=== PATIENT | female | born 1965 | race Caucasian/White ===

== ENCOUNTER → 2018-01-04 08:30 | Outpatient (CLI) | payer BC, SELFPAY ==
--- NOTE | 2018-01-04 08:34 | XR_ITS ---
XR DEXA axial skeleton HISTORY: ITS.REASON: MENOPAUSAL ORDERING PHYSICIAN: Louann Schumacher PATIENT AGE: 52 years COMPARISON: FINDINGS: The BMD measured at the AP Spine L1-L4 is 0.857 g/cm squared with a T score of -2.7. This is considered Osteoporotic according to the World Health Organization criteria. Fracture risk is high. Treatment is advised. The mean density of the hips as a T score of -1.2. IMPRESSION: Osteoporosis with high fracture risk. Recommend follow-up exam December 2018
--- NOTE | 2018-01-04 08:34 | MM_ITS ---
MM Dig screening mamm BI w/CAD CAD Screening COMPARISON: Digital mammograms 11/09/2015 and 01/30/2017 INDICATION: There is no personal or family history of breast cancer TECHNIQUE: Standard CC and MLO images were obtained. R2 CAD reviewed. FINDINGS: Moderate fibroglandular densities are seen in the central portions and upper outer quadrants of each breast. There are few scattered benign-appearing calcination is in each breast. There are 2 mole markers left breast. There is no suspicious lesion and no suspicious microcalcifications. IMPRESSION: Stable exam no suspicious lesion seen BI-RADS Category: 2 Benign Finding(s) RECOMMENDED FOLLOW-UP: 1YR - 1 YEAR FOLLOW-UP (A letter has been sent to the patient regarding results of the study.)
== END ==
PROVIDERS: PCP Obstetrics & Gynecology; Visit Provider Nurse Practitioner Family
DX: Z12.31 Encounter for screening mammogram for malignant neoplasm of breast (principal); Z00.00 Encounter for general adult medical examination without abnormal findings; Z78.0 Asymptomatic menopausal state
CPT/HCPCS: 77067; 77080

== ENCOUNTER 2018-03-22 09:36 | Outpatient (CLI) | payer BC, SELFPAY ==
[2018-03-22 10:04] VITALS: BP 135/77; PULSE 66; RESP 20; TEMP 36.9; O2SAT 96
== END 2018-03-22 10:15 | disposition home or self-care (01) ==
LOC: INF 09:37
PROVIDERS: PCP Nurse Practitioner Family; Visit Provider Obstetrics & Gynecology
DX: M81.0 Age-related osteoporosis without current pathological fracture (principal)
CPT/HCPCS: 96372; J0897

== ENCOUNTER 2018-10-05 10:56 | Outpatient (CLI) | payer BC, SELFPAY | END 2018-10-05 11:20 | disposition home or self-care (01) | LOC: INF 10:56 | PROVIDERS: Visit Provider Obstetrics & Gynecology | DX: M81.0 Age-related osteoporosis without current pathological fracture (principal) | CPT/HCPCS: 96372; J0897 ==

== ENCOUNTER → 2019-01-17 15:24 | Outpatient (CLI) | payer BC, SELFPAY ==
--- NOTE | 2019-01-17 15:27 | MM_ITS ---
MM Dig screening mamm BI w/CAD CAD Screening COMPARISON: And 01/30/2017 INDICATION: There is no personal or family history of breast cancer TECHNIQUE: Standard CC and MLO images were obtained. R2 CAD reviewed. FINDINGS: Moderate fibroglandular densities are seen in the central portions of both breasts. There are few benign-appearing microcalcifications in each breast. There are couple mole markers left breast. There is no suspicious lesion and there are no suspicious microcalcifications. IMPRESSION: Stable exam with no suspicious lesion seen BI-RADS Category: 2 Benign Finding(s) RECOMMENDED FOLLOW-UP: 1YR - 1 YEAR FOLLOW-UP (A letter has been sent to the patient regarding results of the study.)
--- NOTE | 2019-01-17 15:27 | XR_ITS ---
XR DEXA axial skeleton HISTORY: ITS.REASON: SCREENING ORDERING PHYSICIAN: Rajiv Booth MD PATIENT AGE: 53 years COMPARISON: 01/04/2018 FINDINGS: The BMD measured at the AP Spine L1-L4 is 0.909 g/cm squared with a T score of -2.3. This is considered Osteopenic according to the World Health Organization criteria. Fracture risk is Moderate. Treatment is advised. Mean hip density has a T score of -1.0. This has increased by 2.3%. The lumbar spine density has increased 6%. IMPRESSION: Osteopenia with moderate fracture risk. Treatment is advised. Suggest follow-up exam January 2021
== END ==
PROVIDERS: PCP Nurse Practitioner Family; Visit Provider Obstetrics & Gynecology
DX: Z12.31 Encounter for screening mammogram for malignant neoplasm of breast (principal); Z13.820 Encounter for screening for osteoporosis; M81.0 Age-related osteoporosis without current pathological fracture
CPT/HCPCS: 77067; 77080

== ENCOUNTER → 2019-03-08 15:35 | Outpatient (CLI) | payer BC, SELFPAY ==
--- NOTE | 2019-03-08 15:36 | US_ITS ---
US transvaginal HISTORY: ITS.REASON: pelvic pain ORDERING PHYSICIAN: Rajiv Booth MD PATIENT AGE: 53 years Comparison: None FINDINGS: Patient is status post hysterectomy. There is no ultrasound evidence of a focal solid mass or fluid collection. Impression: Prior hysterectomy. No acute process. If symptoms persist consider CT pelvis with intravenous contrast.
== END ==
PROVIDERS: PCP Nurse Practitioner Family; Visit Provider Obstetrics & Gynecology
DX: R10.2 Pelvic and perineal pain (principal)
CPT/HCPCS: 76830

== ENCOUNTER 2019-05-12 14:57 | Outpatient (CLI) | payer BC, SELFPAY ==
[2019-05-12 15:14] VITALS: BP 104/70; PULSE 97; RESP 18; TEMP 36.8; O2SAT 99
== END 2019-05-12 15:54 | disposition home or self-care (01) ==
LOC: INF 14:57
PROVIDERS: Visit Provider Obstetrics & Gynecology
DX: M85.89 Other specified disorders of bone density and structure, multiple sites (principal)
CPT/HCPCS: 96372; J0897

== ENCOUNTER 2019-11-18 14:31 | Outpatient (CLI) | payer BC, SELFPAY ==
[2019-11-18 14:37] VITALS: BP 116/71; PULSE 83; RESP 18; O2SAT 97
== END 2019-11-18 14:40 | disposition home or self-care (01) ==
LOC: INF 14:31
PROVIDERS: Visit Provider Obstetrics & Gynecology
DX: M85.89 Other specified disorders of bone density and structure, multiple sites (principal)
CPT/HCPCS: 96372; J0897

== ENCOUNTER → 2020-03-19 15:58 | Outpatient (CLI) | payer BC, SELFPAY ==
--- NOTE | 2020-03-19 16:08 | MM_ITS ---
PROCEDURE: MM DIG SCREENING MAMM BI W/CAD DIGITAL BREAST TOMOSYNTHESIS INCLUDED Patient Age:54Y CLINICAL INDICATION: Screening Estradiol 0.5 Started 1 Month Ago No New Complaints. Previous Percutaneous Biopsy Right Breast family History.: Negative Noncontributory COMPARISON: DIG MAMM-SCREEN DENIZ from 01/17/2019 TECHNIQUE: Standard CC and MLO images were obtained. R2 CAD reviewed. Bilateral digital breast tomosynthesis included. FINDINGS: Dense Breast Tissue Is Seen At The Central Breast Bilaterally And Extending Towards Upper-outer Quadrants Bilateral. However The Overall Pattern In Architecture Is Similar To Multiple Previous Studies With No New Areas Of Significant Concern. No Suspicious Calcifications. RIGHT BREAST-STABLE Previous Percutaneous Biopsy Metallic Marker Clip Is Seen At Medial Retroareolar Region Right Breast. LEFT BREAST-STABLE impression: STABLE BILATERAL MAMMOGRAM. Areas Of Dense Breast Tissue BILATERALLY appear Stable And Similar To Multiple Previous Studies . No New Areas Of Concern. BILATERAL FOLLOW-UP 1 YEAR RECOMMENDED BI-RAD Category: 2 Benign Finding(s) FOLLOW-UP: 1YR 1 Year Follow-up (A letter has been sent to the patient regarding results of the study.) Dictated by: Hugh Bassett MD 03/23/2020 14:56 Electronically signed by Hugh Bassett MD in [place] 03/23/2020 14:56
== END ==
PROVIDERS: PCP Nurse Practitioner Family; Visit Provider Nurse Practitioner Family
DX: Z12.31 Encounter for screening mammogram for malignant neoplasm of breast (principal)
CPT/HCPCS: 77063; 77067

== ENCOUNTER 2020-07-11 16:53 | Outpatient (CLI) | payer BC, SELFPAY ==
[2020-07-11 16:57] VITALS: BP 121/71; PULSE 77; RESP 18; TEMP 36.6; O2SAT 96
== END 2020-07-11 17:14 | disposition home or self-care (01) ==
LOC: INF 16:53
PROVIDERS: Visit Provider Nurse Practitioner Family
DX: M85.89 Other specified disorders of bone density and structure, multiple sites (principal)
CPT/HCPCS: 96372; J0897

== ENCOUNTER → 2020-12-11 15:15 | Outpatient (POV) | payer BC, SELFPAY | PROVIDERS: Visit Provider Dermatology | DX: Z00.00 Encounter for general adult medical examination without abnormal findings (principal) ==

== ENCOUNTER 2021-01-09 16:36 | Outpatient (CLI) | payer BC, SELFPAY ==
[2021-01-09 14:38] VITALS: BP 108/64; PULSE 80; RESP 17; TEMP 36.9; O2SAT 96
[2021-01-09 16:38] VITALS: BP 108/62; PULSE 80; RESP 16; TEMP 36.9; O2SAT 96
== END 2021-01-09 16:41 | disposition home or self-care (01) ==
LOC: INF 16:36
PROVIDERS: Visit Provider Nurse Practitioner Family
DX: M81.0 Age-related osteoporosis without current pathological fracture (principal)
CPT/HCPCS: 96372; J0897

== ENCOUNTER → 2021-04-23 08:27 | Outpatient (CLI) | payer BC, SELFPAY ==
--- NOTE | 2021-04-23 08:30 | MM_ITS ---
PROCEDURE: MM DIG SCREENING MAMM BI W/CAD Digital Breast Tomosynthesis Included CLINICAL INDICATION: SCREENING COMPARISON: MG SCBI MM Dig screening mamm BI w/CAD from 01/04/2018 MG DIG MAMM-SCREEN DENIZ from 01/17/2019 MG MM DIG SCREENING MAMM BI W/CAD from 03/19/2020 TECHNIQUE: Standard CC and MLO images and 3D Tomosynthesis was obtained. R2 CAD reviewed. FINDINGS: Heterogeneously dense fibroglandular tissue. Biopsy clip is present anterior 1/3 of the right breast medially. There are bilateral benign-appearing calcifications. No malignant appearing mass or malignant-appearing microcalcification. No skin thickening or architectural distortion. IMPRESSION: Benign findings BI-RAD Category: 2 Benign Finding FOLLOW-UP: 1 YR 1 Year Follow-up (A letter has been sent to the patient regarding results of the study.) Dictated by: Ricky Kasper MD 05/01/2021 13:42 Ricky Kasper MD in [place] 05/01/2021 13:42
--- NOTE | 2021-04-23 08:30 | XR_ITS ---
PROCEDURE: XR DEXA AXIAL SKELETON CLINICAL HISTORY: OSTEOPOROSIS SCREENING COMPARISON: CR DEXAAX XR DEXA axial skeleton from 01/17/2019 FINDINGS: The right hip BMD is 0.801 with a T-score of -1.2. The left hip BMD is 0.733 with a T-score of -1.7. The lumbar spine BMD is 0.861 with a T-score of -1.7. Previously the lowest density was in the AP spine with a T-score -2.3 IMPRESSION: This patient is considered osteopenic according to the World Health Organization criteria. Bone density is between 10 and 25 percent below young normal. Fracture risk is moderate. Treatment is advised. BMD has shown improvement since the previous exam in the lumbar spine Based on these results a follow-up exam is recommended in 2 year. Dictated by: Ricky Kasper MD 04/23/2021 14:33 Ricky Kasper MD in [place] 04/23/2021 14:33
== END ==
PROVIDERS: PCP Nurse Practitioner Family; Visit Provider Nurse Practitioner Family
DX: Z13.820 Encounter for screening for osteoporosis (principal); Z12.31 Encounter for screening mammogram for malignant neoplasm of breast
CPT/HCPCS: 77063; 77067; 77080

== ENCOUNTER → 2021-07-27 15:09 | Outpatient (CLI) | payer BC, SELFPAY | PROVIDERS: Visit Provider Nurse Practitioner Family | DX: Z20.822 Contact with and (suspected) exposure to COVID-19 (principal) | CPT/HCPCS: C9803; U0003; U0005 ==

== ENCOUNTER 2021-08-13 09:42 | Outpatient (CLI) | payer BC, SELFPAY ==
[2021-08-13 09:53] VITALS: BP 107/64; PULSE 91; RESP 18; TEMP 36.4; O2SAT 97
== END 2021-08-13 09:53 | disposition home or self-care (01) ==
LOC: INF 09:43
PROVIDERS: PCP Nurse Practitioner Family; Visit Provider Nurse Practitioner Family
DX: M81.0 Age-related osteoporosis without current pathological fracture (principal)
CPT/HCPCS: 96372; J0897

== ENCOUNTER 2022-03-03 14:30 | Outpatient (CLI) | payer BC, SELFPAY ==
[2022-03-03 15:00] VITALS: BP 131/72; PULSE 84; RESP 18; TEMP 36.6; O2SAT 99
== END 2022-03-03 15:10 | disposition home or self-care (01) ==
LOC: INF 14:30
PROVIDERS: PCP Nurse Practitioner Family; Visit Provider Nurse Practitioner Family
DX: M81.0 Age-related osteoporosis without current pathological fracture (principal)
CPT/HCPCS: 96372; J0897

== ENCOUNTER 2022-04-05 09:05 | Emergency (ER) | payer BC, SELFPAY ==
[2022-04-05 09:15] VITALS: BP 135/83; PULSE 101; RESP 20; TEMP 36.8; O2SAT 98; BMI 24.6
[2022-04-05 09:52] VITALS: BP 132/82; PULSE 96; RESP 16; TEMP 36.9; O2SAT 98; BMI 24.7
--- NOTE | 2022-04-05 09:52 | XR_ITS ---
PROCEDURE INFORMATION: Exam: XR Chest Exam date and time: 04/05/2022 10:12 AM Age: 56 years old Clinical indication: Other: Palpitations in chest TECHNIQUE: Imaging protocol: Radiologic exam of the chest. Views: 1 view. COMPARISON: No relevant prior studies available. FINDINGS: Lungs: No consolidation. Overlying EKG leads limit evaluation. Pleural spaces: No pleural effusion. No pneumothorax. Heart/Mediastinum: No cardiomegaly. Bones/joints: There are mild degenerative changes of the spine. IMPRESSION: 1. No evidence of active pulmonary disease. 2. A followup PA and lateral radiograph is recommended when the patient is clinically able.
--- NOTE | 2022-04-05 09:53 | HMH.EDGENADL ---
ED Disposition Clinical Impression: Tachycardia Disposition: Home, Self-Care Condition on Discharge: Good Instructions: DI for Tachycardia Additional Instructions: You have been evaluated for rapid heart rate. Please continue to monitor your symptoms closely. Try to keep a regular sleep schedule. Avoid excessive caffeine. Follow-up with your primary care doctor as well as cardiology. Return to the emergency department at once for any new or worsening symptoms, chest pain, difficulty breathing, other concerns. Referrals: Louann Schumacher [Primary Care Provider] - Basim Rojas MD [Staff Physician] - Time of Disposition: 11:03 - Critical Care Critical Care Time: No Attestation: On 04/05/22, the high probability of a clinically significant, sudden or life threatening deterioration of the following system(s) required my full and direct attention, intervention and personal management. The time I documented below is in addition to time spent performing reported procedures but includes the following listed in this critical care notation. Medical Decision Making - Medical Records Medical records reviewed: Yes: I reviewed the patient's medical records. - [place] Inquiry Pt receiving controlled substance: No Vital Signs: 04/05/22 09:15 04/05/22 09:52 04/05/22 10:39 Temperature 98.3 F 98.4 F Temperature Source Oral Oral Pulse Rate 77 Pulse Rate [Right Brachial] 101 H 96 H Respiratory Rate 20 16 18 Blood Pressure 123/76 Blood Pressure [Right Arm] 135/83 132/82 Blood Pressure Mean 90 Blood Pressure Mean [Right Arm] 100 98 Blood Pressure Source [Right Arm] Automatic Cuff Automatic Cuff Blood Pressure Position [Right Arm] Sitting Sitting 02 Sat by Pulse Oximetry 98 98 97 Oxygen Delivery Method Room Air Room Air - Lab Data Lab Results 04/05/22 10:01: WBC 5.8, RBC 4.68, Hgb 14.0, Hct 42.0, MCV 89.8, MCH 29.9, MCHC 33.3, RDW 12.5, Plt Count 258, MPV 6.7 L, Neut % (Auto) 72.5, Lymph % (Auto) 20.1, [place] % (Auto) 5.0, Eos % (Auto) 1.0, Baso % (Auto) 1.4, Neut # (Auto) 4.2, Lymph # (Auto) 1.2, [place] # (Auto) 0.3, Eos # (Auto) 0.1, Baso # (Auto) 0.1 04/05/22 10:01: D-Dimer 0.48 04/05/22 10:01: Sodium 138, Potassium 4.0, Chloride 103, Carbon Dioxide 30, Anion Gap 9.0, BUN 12, Creatinine 0.70, Estimated Creat Clear 88, Estimated GFR 87, Est GFR ( Amer) 105, Glucose 109 H, Calcium 9.2, Troponin I < 0.01, TSH 1.20 04/05/22 10:01: Magnesium 2.0 Result diagrams: 04/05/22 10:01 04/05/22 10:01 Orders (Tests/Meds): ED MEDICATIONS Discontinued Medications Generic Name Dose Route Start Last Admin Trade Name Freq PRN Reason Stop Dose Admin Acetaminophen 500 mg 04/05/22 10:57 Acetaminophen 500mg Tab PO 04/05/22 10:58 ONCE ONE ORDERS Category Date Time Status Covid-19 Nasal PCR ([facility]) Routine Lab 04/05/22 10:30 Received Troponin I Q3H Lab 04/05/22 13:00 Ordered Troponin I Q3H Lab 04/05/22 16:00 Ordered ECG Request by /Nse Stat Y 04/05/22 09:52 Ordered - ECG Data Tracing #1 Sinus tachycardia with ventricular rate of 105 bpm. QRS 94, QTc 388. No ST segment elevation. No arrhythmia. Medical Decision Narrative: In summary this is a 56-year-old female presenting to the emergency department with rapid heart rate, palpitations. Patient clinically stable on arrival. She is tachycardic to 105 beats minute. Other vital signs within normal limits. Will obtain CBC, BMP, chest x-ray, EKG, troponin profile, D-dimer, thyroid studies, COVID testing. EKG shows sinus tachycardia, no evidence of ischemia or arrhythmia. Initial laboratory results are reassuring. No anemia. Glucose and electrolytes within normal limits. No renal dysfunction. D-dimer is within normal limits, my concern for acute pulmonary embolism is quite low. Troponin undetectable. Unlikely ischemic disease. On reassessment, patient says she is feeling much better. Heart rate has come down
[2022-04-05 10:10] LABS: Basophils # 0.1 K/mm3 (0-0.2); Basophils % 1.4 % (0.1-2.0); Eosinophils # 0.1 K/mm3 (0.0-0.4); Lymphocytes # 1.2 K/mm3 (0.7-4.5); Lymphocytes % 20.1 % (10-50); Mean Corpuscular HGB Conc 33.3 g/dL (31.8-35.4); Mean Corpuscular Hemoglobin 29.9 pg (27.0-31.2); Mean Corpuscular Volume 89.8 fl (81-99); Mean Platelet Volume 6.7 fl (7.4-10.4); Monocytes # 0.3 K/mm3 (0.1-1.0); Neutrophils # 4.2 K/mm3 (1.8-7.8); Neutrophils % 72.5 % (37.0-80.0); Platelet Count 258 K/mm3 (142-424); Red Blood Count 4.68 M/mm3 (4.20-5.40); Red Cell Distribution Width 12.5 % (11.5-17.5); White Blood Count 5.8 K/mm3 (4.8-10.8)
--- NOTE | 2022-04-05 10:10 | ECG_ITS ---
APPROVED REPORT Exam: Resting ECG HR:75 bpm ECG Measurements Heart Rate 75 AXES TX 144 P 55 QRSd 90 QRS 51 QT 394 T 58 QTc 423 Conclusion SINUS RHYTHM POSSIBLE RIGHT VENTRICULAR CONDUCTION DELAY [RSR (QR) IN V1/V2] NONSPECIFIC T-WAVE ABNORMALITY BORDERLINE ECG UNCONFIRMED REPORT Electronically signed by : Kishore Evans MD 04/08/2022 21:16:31
[2022-04-05 10:20] LABS: Blood Urea Nitrogen 12 mg/dl (7-17); Calcium 9.2 mg/dl (8.4-10.2); Carbon Dioxide 30 mmol/L (22.0-30.0); Chloride 103 mmol/L (98-107); Creatinine Clearance Estimated 88 mL/min (50-200); Estimated Glomerular Filt Rate 87 ml/min (>60); GFR (African American) 105 ML/MIN (>60); Glucose 109 mg/dl (74-100); Sodium 138 mmol/L (136-145)
[2022-04-05 10:24] LABS: D-Dimer 0.48 ug/mL (0.0-0.5)
--- NOTE | 2022-04-05 10:30 | PC.NURSE ---
LAB DOING COVID SWAB
[2022-04-05 10:37] LABS: Troponin I < 0.01 ng/ml (0.00-0.034)
[2022-04-05 10:39] VITALS: BP 123/76; PULSE 77; RESP 18; O2SAT 97
[2022-04-05 11:01] VITALS: BP 118/79; PULSE 73; RESP 18; O2SAT 98
--- NOTE | 2022-04-05 11:12 | PC.NURSE ---
rounded on pt at this time. no needs voiced by patient.
--- NOTE | 2022-04-05 11:12 | PC.NURSE ---
PT C/O H/A TYLENOL ORDERED
--- NOTE | 2022-04-05 11:26 | PC.NURSE ---
spoke to renée in the lab to change covid order to a rapid.
[2022-04-05 11:28] LABS: Coronavirus 19, PCR Not Detected (NotDetected); Influenza A, PCR Not Detected (NotDetected); Influenza B, PCR Not Detected (NotDetected)
[2022-04-05 11:38] VITALS: BP 114/83; PULSE 70; RESP 20; TEMP 36.9; O2SAT 100
== END 2022-04-05 11:40 | disposition home or self-care (01) ==
LOC: UTC 09:08 → ER 09:43
PROVIDERS: Emergency Provider Emergency Medicine; PCP Nurse Practitioner Family
DX: R00.0 Tachycardia, unspecified (principal); R00.2 Palpitations; R51.9 Headache, unspecified; R07.9 Chest pain, unspecified; M81.0 Age-related osteoporosis without current pathological fracture
CPT/HCPCS: 71045; 80048; 83735; 84443; 84484; 85025; 85378; 93005; 99285; C9803; U0003; U0005

== ENCOUNTER → 2022-05-26 09:26 | Outpatient (CLI) | payer BC, SELFPAY ==
--- NOTE | 2022-05-26 09:34 | MM_ITS ---
PROCEDURE INFORMATION: Exam: MG Bilateral Screening 3D Mammography Exam date and time: 05/26/2022 9:38 AM Age: 56 years old Clinical indication: Screening examination TECHNIQUE: Imaging protocol: Bilateral Screening tomosynthesis and 2D mammography including computer-aided detection (CAD) when performed. COMPARISON: 1. MG MM DIG SCREENING MAMM BI W/CAD 04/23/2021 8:41 AM 2. MG MM DIG SCREENING MAMM BI W/CAD 03/19/2020 4:08 PM FINDINGS: MAMMOGRAPHY: Breast composition: The breasts are heterogeneously dense, which may obscure small masses. Mass: None. Architectural distortion: None. Calcifications: No suspicious calcifications. Asymmetric density: None. Skin thickening: None. Axillary adenopathy: None. IMPRESSION: No mammographic evidence of malignancy. Annual screening is recommended unless otherwise clinically indicated. ASSESSMENT: BI-RADS Category 1: Negative
--- NOTE | 2022-05-26 09:36 | XR_ITS ---
FINAL REPORT CLINICAL HISTORY: . post menopausal COMPARISON: 04/23/2021 FINDINGS: DEXA BONE DENSITY AXIAL SKELETON Using L1-4, the bone mineral density of the spine is 0.856 g/cm2, corresponding to T-score of -1.7. Previously measured 0.861 g/cm2, corresponding to T-score of -1.7. Using the left hip, the bone mineral density of the femoral neck is 0.745 g/cm2, corresponding to a T-score of -1.6. Previously measured 0.733 g/cm2, corresponding to T-score of -1.7. NOTE: T-score: Standard deviation compared with peak bone mass of young adult mean. *Following the recommendations of the International Society of Bone densitometry, classification of hip BMD is based on the lower of two T-scores; total hip or femoral neck. IMPRESSION: Diminished bone mineral density of the lumbar spine and left hip consistent with osteopenia. Similar to the prior exam. FRAX not reported because patient is being treated for osteoporosis. Reviewed, Interpreted and Dictated by Candido Gamboa III, MD Transcribed by Violet Manjarrez Authenticated and [facility]
== END ==
PROVIDERS: PCP Nurse Practitioner Family; Visit Provider Nurse Practitioner Family
DX: Z12.31 Encounter for screening mammogram for malignant neoplasm of breast (principal); M81.0 Age-related osteoporosis without current pathological fracture
CPT/HCPCS: 77063; 77067; 77080

== ENCOUNTER 2022-09-02 14:57 | Outpatient (CLI) | payer BC, SELFPAY ==
[2022-09-02 15:09] VITALS: BP 132/82; PULSE 68; RESP 18; O2SAT 98
== END 2022-09-02 15:09 | disposition home or self-care (01) ==
LOC: INF 14:57
PROVIDERS: PCP Nurse Practitioner Family; Visit Provider Nurse Practitioner Family
DX: M81.0 Age-related osteoporosis without current pathological fracture (principal)
CPT/HCPCS: 96372; J0897